=== PATIENT | female | born 1965 | race African-American/Black ===

== ENCOUNTER 2019-12-20 02:47 | Emergency (ER) | payer BC, OTHER ==
[2019-12-20] MEDS ORDERED: PREDNISONE 20 MG TABLET PO ONE (03:54)
[2019-12-20] MEDS ORDERED: DIPHENHYDRAMINE HCL 25 MG CAPSULE PO ONE (03:54)
[2019-12-20] MEDS ORDERED: FAMOTIDINE 20 MG TABLET PO ONE (03:54)
--- NOTE | 2019-12-20 04:29 | ER Document Report ---
HPI - HPI Time Seen by Provider: 12/20/19 03:29 Pain Level: Denies Notes: 54-year-old female patient presenting to the emergency department chief complaint of itching around her mouth, tongue and a feeling of a full tongue. She states this occurred after mowing her lawn today. She denies any history of allergies and denies any difficulty swallowing. She does take lisinopril. - REPRODUCTIVE Reproductive: DENIES: : Past Medical History - General Information source: Patient - Social History Smoking Status: Never Smoker Family History: Reviewed & Not Pertinent Patient has suicidal ideation: No Patient has homicidal ideation: No - Past Medical History Cardiac Medical History: Reports: Hx Hypertension Vertical Provider Document - CONSTITUTIONAL Notes: PHYSICAL EXAMINATION: GENERAL: Well-appearing, well-nourished and in no acute distress. HEAD: Atraumatic, normocephalic. EYES: Pupils equal round extraocular movements intact, conjunctiva are normal. ENT: Nares patent, no tongue swelling or lip swelling noted. Uvula midline, no tonsillar swelling, erythema or exudates. NECK: Normal range of motion LUNGS: No respiratory distress Musculoskeletal: Normal range of motion NEUROLOGICAL: Normal speech, normal gait. PSYCH: Normal mood, normal affect. SKIN: Warm, Dry, normal turgor, no rashes or lesions noted. - INFECTION CONTROL TRAVEL OUTSIDE OF THE [place] IN LAST 30 DAYS: No Course - Re-evaluation Re-evalutation: Patient speaking in full and complete sentences, swallowing without difficulty. Patient has no swelling to her tongue or lips. I do not think this is angioedema from her lisinopril rather I believe she has had a mild allergic reaction possibly to something in the environment from when she cut the grass. She was given Pepcid and prednisone here, she took Benadryl at home. She reports she is feeling much improved and will be discharged home at this time with strict ED return precautions. - Vital Signs Vital signs: Temp Pulse Resp BP Pulse Ox 98.5 F 77 18 140/92 H 96 12/20/19 02:51 12/20/19 02:51 12/20/19 02:51 12/20/19 02:51 12/20/19 02:51 Discharge - Discharge Clinical Impression: lip itching Condition: Stable Disposition: HOME, SELF-CARE Additional Instructions: Please take medications as prescribed. You may also take 25 to 50 mg of Benadryl every 6 hours for your symptoms. Please return to the emergency department for any new or worsening symptoms to include difficulty breathing, shortness of breath, difficulty swallowing or any other life-threatening complaint. Prescriptions: Prednisone [Deltasone 20 mg Tablet] 3 tab PO DAILY 5 Days #15 tablet Famotidine [Pepcid 20 mg Tablet] 20 mg PO BID #10 tablet Referrals: SHEILA DIAZ PA-C [Primary Care Provider] - Follow up as needed
[2019-12-20 04:42] VITALS: BP 128/83
== END 2019-12-20 04:42 | disposition home or self-care (01) ==
LOC: ER 02:47
DX: L29.8 Other pruritus (principal); I10 Essential (primary) hypertension
CPT/HCPCS: 99283; J7512